=== PATIENT | male | born 1980 | race Caucasian/White ===

== ENCOUNTER 2022-04-12 00:01 | Outpatient (CLI) | payer OTHER, SELFPAY | END 2022-04-12 00:02 | disposition home or self-care (01) | LOC: AMB 04-28 13:33 | PROVIDERS: Visit Provider Family Medicine | DX: R07.89 Other chest pain (principal) | CPT/HCPCS: A0998 ==

== ENCOUNTER 2022-04-12 00:48 | Emergency (ER) | payer OTHER, SELFPAY ==
[2022-04-12 00:54] VITALS: BP 189/132; PULSE 220; TEMP 37.1; O2SAT 97; BMI 25.8
[2022-04-12 01:00] VITALS: PULSE 113
[2022-04-12 01:38] LABS: Basophils Absolute Auto 0.03 K/uL (0.00-0.30); Basophils Percent Auto 0.6 % (0.0-3.0); Eosinophils Absolute Auto 0.03 K/uL (0.00-0.50); Eosinophils Percent Auto 0.6 % (0.0-7.0); Hematocrit 46.4 % (37.0-53.0); Hemoglobin* 16.6 gm/dL (13.5-17.5); Immature Granulocytes Abs Auto 0.04 K/uL (0.00-0.30); Immature Granulocytes Pct Auto 0.8 %; Lymphocytes Absolute Auto 1.92 K/uL (0.90-2.90); Lymphocytes Percent Auto 38.5 % (20-44); Mean Corpuscular HGB Conc 36 gm/dL (32-36); Mean Corpuscular Hemoglobin 36 pg (26-34); Mean Corpuscular Volume 102 fL (80-100); Monocytes Percent Auto 9.6 % (0.0-11.0); Neutrophils Absolute Auto 2.49 K/uL (1.7-7.0); Neutrophils Percent Auto 49.9 % (42.0-72.0); Platelet Count* 132 K/uL (140-440); RDW Coefficient of Variation % 12.1 % (11.5-15.5); Red Blood Count 4.56 m/uL (4.30-5.90); Slide Review Reflex No; White Blood Count* 4.99 K/uL (4.50-11.00)
[2022-04-12 01:43] LABS: Albumin* 4.5 g/dL (3.3-5.0)
[2022-04-12 01:44] LABS: Chloride* 99 mmol/L (96-114); Potassium* 3.5 mmol/L (3.6-5.1); Sodium* 137 mmol/L (135-149)
[2022-04-12] MEDS: 0.9 % SODIUM CHLORIDE 1000 ml 1,000 ML IV (01:45)
[2022-04-12 01:46] LABS: Alanine Aminotransferase* 136 U/L (4-50); Alkaline Phosphatase* 96 U/L (40-150); Aspartate Amino Transferase* 202 U/L (12-35); Bilirubin Direct* 0.4 mg/dL (0.0-0.5); Bilirubin Total* 1.1 mg/dL (0.1-1.5); Magnesium* 1.6 mg/dL (1.5-2.6); Total Protein* 7.7 g/dL (6.0-8.3)
[2022-04-12 01:47] LABS: Carbon Dioxide* 27 mmol/L (20-32); Creatinine* 0.5 mg/dL (0.5-1.5); Estimated Glomerular Filt Rate 131 ml/min
[2022-04-12 01:48] LABS: Blood Urea Nitrogen* 3 mg/dL (5-24); Calcium* 9.7 mg/dL (8.4-10.6); Glucose* 116 mg/dL (60-115)
[2022-04-12 01:51] LABS: C Reactive Protein* < 0.5 mg/dL (0.5-1.0)
[2022-04-12 01:59] LABS: NT Pro B Type NatriureticPept* 27 pg/mL; Troponin I* < 0.01 ng/mL (0.01-0.04)
[2022-04-12] MEDS: POTASSIUM BICARB 25 MEQ EFFERVESCENT TAB 50 MEQ PO (02:43)
[2022-04-12 03:32] VITALS: BP 173/108; PULSE 84; RESP 21; O2SAT 94
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
== END 2022-04-12 03:53 | disposition home or self-care (01) ==
PROVIDERS: Emergency Provider Family Medicine
DX: F10.239 Alcohol dependence with withdrawal, unspecified (principal); R00.0 Tachycardia, unspecified; E86.0 Dehydration; E87.6 Hypokalemia; F43.9 Reaction to severe stress, unspecified
CPT/HCPCS: 36415; 80048; 80076; 83735; 83880; 84484; 85025; 86140; 94761; 96365; 99284; A9270; J3475; J7030